=== PATIENT | male | born 1980 | race Caucasian/White ===

== ENCOUNTER → 2017-07-11 10:15 | Outpatient (REF) | payer OTHER, SELFPAY | LOC: LAB 10:15 | PROVIDERS: Visit Provider Surgery | DX: L02.419 Cutaneous abscess of limb, unspecified (principal) | CPT/HCPCS: 87070; 87077; 87186; 87205 ==

== ENCOUNTER 2017-07-11 14:30 | Outpatient (CLI) | payer OTHER, SELFPAY ==
--- NOTE | 2017-07-11 16:41 | PC.NURSE ---
1450 - PT HAD I&D OF RIGHT ANTERIOR THIGH ABSCESS IN DR ANNE'S OFFICE YESTERDAY. CAME IN TODAY FOR WET TO DRY DRESSING CHANGE TO RIGHT THIGH AND INSTRUCTIONS TO BE GIVEN TO ON WOUND CARE/DRESSING CHANGES AND CONTINUE AT HOME BID. OUTER DRESSING CONTAINS BLOODY DRAINAGE. REMOVED DRESSING AND WET PACKING WITH NS PRIOR TO REMOVAL. WOUND BED RED AND MOIST AND MEASURES 2CM X 1CM. AREA AROUND WOUND RED AND SLIGHTLY SWOLLEN. PACKED WOUND WITH NS SOAKED STRETCH BANDAGE, COVERED WITH 2 DRY 4X4'S FOLLOWED BY ABD PAD FOLDED IN HALF AND TAPED INTO PLACE. INSTRUCTED ON WOUND CARE/DRESSING CHANGE AND SHE WATCHED AND ASKED QUESTIONS PROCEDURE TAKING PLACE. SHE STATED SHE FELT COMFORTABLE DOING DRESSING CHANGES BID AT HOME. SUPPLIES GIVEN TO PERFORM DRESSING CHANGES. INSTRUCTED TO CALL DR ANNE IF DEVELOPS FEVER OF IF WOUND BECOMES FOUL SMELLING OR DRAINAGE BECOMES PUS-LIKE.
== END 2017-07-11 15:35 | disposition home or self-care (01) ==
LOC: INF 14:48
PROVIDERS: Family Provider Family Medicine; PCP Otolaryngology; Visit Provider Surgery
DX: L03.115 Cellulitis of right lower limb (principal); Z48.01 Encounter for change or removal of surgical wound dressing
CPT/HCPCS: G0463

== ENCOUNTER 2019-10-27 09:54 | Outpatient (RCR) | payer BC, SELFPAY ==
--- NOTE | 2019-10-27 10:39 | HMH.PTOPEV ---
PT Outpatient Evaluation Rehab PT Outpatient Evaluation Start: 10/27/19 10:01 Freq: Status: Active Protocol: Document 10/27/19 10:33 PHORRADHA (Rec: 10/27/19 10:39 PHORNE [id number]) Electronically Signed By Brigido Bustillo, PT 10/27/19 10:33 Outpatient Therapy Subjective History Subjective History Pt presents with c/o 2-3 wks of intermittent vertigo after an episode that lasted ~ 1-2 hrs. He reports having a hx of Vertigo beginning ~ 9 yrs ago when he had an episode of sudden onset vertigo with N/V that lasted ~ 12 hrs. He reports having several episodes that last for a few hours over the years since that time. He has been given vestibular exercises before that seem to help. He reports since this latest episode he cut back on his salt intake which has helped his feelings of vertigo. He also reports he uses allergy medication and nasal spray for sinus symptoms frequently. Chief Complaint Other Level of pain today (0-10) 0 Pain scale - at its worst (0-10) 0 Balance Eval Hx of Falls Hx Falls No Gait/Posture Asssessment General Gait Observation No Deviations/Normal Nystagmus Nystagmus Presence None Oculomotor Gaze Oculomotor Gaze Nml: Vergence Smooth Pursuit Saccades VOR Cancellation Cover/Uncover Cross Cover Outpatient Therapy Assessment Impairments Problems/Impairmments Impaired Balance Prognosis Rehab Potential Good Clinical Impression Consistent with Diagnosis Yes Consistent with likely meniere's disease. Outpatient Therapy Plan of Care Frequency Times per week 0 Duration Number of Weeks 0 Addendums This patient is a candidate for social No or vocational rehab? Patient/Guardian verbally acknowledges Yes understanding of treatment program and consents to further treatment? Patient/Guardian verbally acknowledges Yes understanding of diagnosis, prognosis and goals for treatment? G -code Required No Eval Complexity PT Charges
== END 2019-10-27 09:59 | disposition home or self-care (01) ==
LOC: PT 09:54
PROVIDERS: PCP Internal Medicine Adolescent Medicine; Visit Provider Family Medicine
DX: H81.399 Other peripheral vertigo, unspecified ear (principal)
CPT/HCPCS: 97163

== ENCOUNTER → 2021-03-13 08:29 | Outpatient (CLI) | payer BC, SELFPAY | PROVIDERS: Visit Provider Nurse Practitioner | DX: Z20.822 Contact with and (suspected) exposure to COVID-19 (principal); U07.1 COVID-19 | CPT/HCPCS: C9803; U0003; U0005 ==

== ENCOUNTER 2023-09-20 14:44 | Outpatient (CLI) | payer BC, SELFPAY ==
[2023-09-20 19:04] LABS: Alanine Aminotransferase 43 U/L (12-78); Albumin Level 4.6 g/dl (3.5-5.0); Albumin/Globulin Ratio 1.8 (1.1-1.8); Alkaline Phosphatase 65 U/L (38-126); Anion Gap 17.3 mEq/L (5-15); Aspartate Amino Transferase 41 U/L (17-59); Bilirubin,Total 0.7 mg/dl (0.2-1.3); Blood Urea Nitrogen 17 mg/dl (9-20); Calcium 9.8 mg/dl (8.4-10.2); Carbon Dioxide 25 mmol/L (22.0-30.0); Chloride 104 mmol/L (98-107); Chol/HDL Ratio 4.8 (1-3.5); Cholesterol 246 mg/dl (140-200); Estimated Glomerular Filt Rate 73 ml/min (>60); GFR (African American) 88 ML/MIN (>60); Globulin 2.5 g/dL (1.3-3.2); Glucose 81 mg/dl (74-100); HDL Cholesterol 51 mg/dl (40-60); Potassium 4.3 mmoL/L (3.5-5.1); Sodium 142 mmol/L (136-145); Total Protein,Serum 7.1 g/dl (6.3-8.2); Triglycerides 112 mg/dl (30-150); VLDL Cholesterol 22 mg/dL (0-40)
[2023-09-20 19:16] LABS: Direct LDL Cholesterol 159.89 mg/dL (100-129)
== END 2023-09-20 23:59 | disposition home or self-care (01) ==
LOC: LAB.DROPOF 09-23 14:44
PROVIDERS: PCP Family Medicine; Visit Provider Family Medicine
DX: D17.9 Benign lipomatous neoplasm, unspecified (principal)
CPT/HCPCS: 80053; 80061

== ENCOUNTER 2023-10-09 10:57 | Outpatient (CLI) | payer BC, SELFPAY ==
[2023-10-09 11:33] LABS: Basophils % 0.6 % (0.1-2.0); Eosinophils # 0.1 K/mm3 (0.0-0.4); Eosinophils % 1.8 % (0.1-12.0); Hemoglobin 15.3 g/dL (14.1-18.0); Lymphocytes # 2.1 K/mm3 (0.7-4.5); Lymphocytes % 32.5 % (10-50); Mean Corpuscular HGB Conc 33.2 g/dL (31.8-35.4); Mean Corpuscular Hemoglobin 30.3 pg (27.0-31.2); Mean Corpuscular Volume 91.2 fl (80-94); Mean Platelet Volume 10.3 fl (7.4-10.4); Monocytes # 0.3 K/mm3 (0.1-1.0); Monocytes % 4.6 % (1.7-9.3); Neutrophils # 3.8 K/mm3 (1.8-7.8); Neutrophils % 60.4 % (37.0-80.0); Platelet Count 200 K/mm3 (142-424); Red Blood Count 5.04 M/mm3 (4.60-6.20); Red Cell Distribution Width 14.2 % (11.5-17.5); White Blood Count 6.3 K/mm3 (4.8-10.8)
== END 2023-10-09 23:59 | disposition home or self-care (01) ==
LOC: LAB 10:58
PROVIDERS: PCP Family Medicine; Visit Provider Surgery
DX: D17.9 Benign lipomatous neoplasm, unspecified (principal)
CPT/HCPCS: 36415; 85025

== ENCOUNTER 2023-10-18 09:40 | Day surgery (SDC) | payer BC, SELFPAY ==
[2023-10-17 08:55] VITALS: BMI 34.4
[2023-10-18] VITALS (12 sets, daily range): BP systolic 132–152; BP diastolic 74–90; PULSE 64–78; RESP 16–18; TEMP 36.1–43; O2SAT 95–99; BMI 34.4
[2023-10-18] MEDS: LACTATED RINGERS 1000ML 1,000 ML 25 ML IV (10:11)
--- NOTE | 2023-10-18 10:54 | P.PNANES_ITS ---
[facility] Disclaimer: The information contained in this section may have been updated after the patient was seen, as this information can be updated by other users. Medical History Contusion of left ankle Surgical History H/O oral surgery Family History Father Cancer Hypertension Grandfather Stroke Mother Hypertension Grandmother Diabetes Social History Smoking Status: Never smoker alcohol intake: never counseling provided: none substance use type: denies use current occupational status: employed Travel in the last 8 weeks: None household members: spouse and children housing: house [facility] Anesthesia Checklist Patient Identification Patient Identification: Arm Band and Verbal (Name & ) Structural Data Admitted From: Home Planned Operative Procedure/s: Lipoma removal Consent for Planned Operative Procedure(s) Verified: Yes Verified Documents: Surgical Consent and History and Physical NPO Status Verified Time NPO: 00:00 Additional verifications Anesthesia Reactions: No Blood Transfusion Reaction: No Airway Assessment Mallampati Score:: Class III C-Spine Mobility Assessed: Yes TMJ Mobility Assessed: Yes Dentition: Good Dentition (Implants) Neurological Assessment Level of Consciousness: Awake Hx Seizures: No Numbness or tingling in extremities: No Anesthesia Plan Anesthesia Risk discussed: Yes Anesthesia Plan: Verified ASA Class: II Anesthesia Type: General
[2023-10-18] MEDS: CLINDAMYCIN PHOSPHATE/D5W 900 MG/50 ML PIGGYBACK IV (11:41)
[2023-10-18] MEDS: LIDOCAINE 1% 20ML MDV 20 ML (11:41)
--- NOTE | 2023-10-18 12:06 | EXP.OP.NOTE ---
Date of procedure: 10/18/23 Pre-op Diagnosis:: 3.5 cm left shoulder lipoma 1 cm right upper extremity lipoma Post-op Diagnosis:: Same Procedure performed:: Excision of 3.5 cm left shoulder lipoma Excision of 1 cm right upper extremity lipoma Surgeon:: Blas Jones MD PIGGYBACK CLERK:: Andres Glover Anesthesia: LMA Estimated blood loss (mL): 15 Operative findings:: Lobulated 3.5 cm complex left shoulder apex lipoma 1 cm right upper extremity lipoma Operative note:: After informed consent was obtained the patient was taken to the operating room and placed in the supine position. General anesthesia with laryngeal mask airway was achieved. His right arm and left shoulder apex region were prepped and draped in a sterile fashion. After infiltration with local anesthetic an incision was made overlying the 1 cm right upper extremity lipoma. The lesion was excised in toto with electrocautery. Electrocautery was also utilized to achieve hemostasis. Skin was reapproximated with 4-0 nylon in an interrupted mattress fashion to facilitate hemostasis and a pressure dressing was applied. Attention was then turned to the left shoulder apex lipoma. After infiltration with local anesthetic an incision was made overlying the palpable lesion. Electrocautery was utilized to transect through the deeper subcutaneous tissue and around the lipomatous lesion. The lesion which was somewhat lobulated and complex was excised in toto. Skin was reapproximated with interrupted 4-0 nylon in an interrupted mattress fashion. Dressings were applied and the patient was transferred to recovery in stable condition. Specimens were both passed off for pathologic evaluation. Condition: stable Disposition: PACU Specimens:: 3.5 cm left shoulder apex lipoma 1 cm right upper extremity lipoma Complications:: No immediate
--- NOTE | 2023-10-18 12:26 | P.PNANES_ITS ---
[facility] Anesthesia Record Part I Anesthesia Record I Intake, IV Amount: 600 Hydration: Adequate Estimated blood loss (mL): 5 Urine output (mL): 9 Blood Products used (#): none Blood Pressure: 144/77 SaO2: 97 Pulse Rate: 68 Airway Patency: Patent Respiratory Rate: 16 Temperature: 97 F Patient is:: Drowsy and Stable Stable to PACU at:: 12:15
--- NOTE | 2023-10-18 13:17 | EXP.ANES.II ---
[facility] Anesthesia Record Part II Anesthesia Record Part II Discharge Time: 12:45 Destination: Surgical Day Care (OP Surgery) PACU nurse assessment reviewed?: Yes Patient Condition:: Good Anesthesia Complications:: None Swallowing reflex intact?: Yes Airway Patency: Patent Cyanosis?: No Blood Pressure: 150/82 SaO2: 97 Respiratory Rate: 16 Pulse Rate: 67 Temperature: 97.9 F Mental Status: Alert & Oriented Pain level:: 0 Nausea and/or vomitting:: None Intake, IV Amount: 0 Hydration: Adequate
== END 2023-10-18 13:16 | disposition home or self-care (01) ==
PROVIDERS: PCP Family Medicine; Visit Provider Surgery
PROC: (CPT 11404; principal; 2023-10-18 11:15)
DX: D17.21 Benign lipomatous neoplasm of skin and subcutaneous tissue of right arm (principal); D17.22 Benign lipomatous neoplasm of skin and subcutaneous tissue of left arm
CPT/HCPCS: 11404; 11401; 96374; J1100; J2405; J3010; J7120

== ENCOUNTER 2024-07-29 08:25 | Outpatient (CLI) | payer BC, SELFPAY ==
[2024-07-29 08:59] LABS: Basophils % 0.5 % (0.1-2.0); Eosinophils # 0.2 K/mm3 (0.0-0.4); Eosinophils % 3.2 % (0.1-12.0); Hematocrit 46.8 % (42.0-52.0); Lymphocytes # 2.3 K/mm3 (0.7-4.5); Mean Corpuscular HGB Conc 34.2 g/dL (31.8-35.4); Mean Corpuscular Hemoglobin 29.6 pg (27.0-31.2); Mean Corpuscular Volume 86.5 fl (80-94); Mean Platelet Volume 12.4 fl (7.4-10.4); Monocytes # 0.4 K/mm3 (0.1-1.0); Monocytes % 6.6 % (1.7-9.3); Neutrophils # 3.5 K/mm3 (1.8-7.8); Neutrophils % 54.1 % (37.0-80.0); Platelet Count 210 K/mm3 (142-424); Red Blood Count 5.41 M/mm3 (4.60-6.20); Red Cell Distribution Width 13.1 % (11.5-17.5); White Blood Count 6.5 K/mm3 (4.8-10.8)
[2024-07-29 09:34] LABS: Alanine Aminotransferase 56 U/L (12-78); Albumin Level 4.7 g/dl (3.5-5.0); Albumin/Globulin Ratio 2.5 (1.1-1.8); Alkaline Phosphatase 59 U/L (38-126); Anion Gap 12.5 mEq/L (5-15); Aspartate Amino Transferase 38 U/L (17-59); Bilirubin,Total 0.6 mg/dl (0.2-1.3); Blood Urea Nitrogen 18 mg/dl (9-20); Calcium 9.8 mg/dl (8.4-10.2); Carbon Dioxide 27 mmol/L (22.0-30.0); Chloride 105 mmol/L (98-107); Chol/HDL Ratio 5.7 (1-3.5); Cholesterol 212 mg/dl (140-200); Estimated Glomerular Filt Rate 81 ml/min (>60); GFR (African American) 98 ML/MIN (>60); Globulin 1.9 g/dL (1.3-3.2); Glucose 104 mg/dl (74-100); HDL Cholesterol 37 mg/dl (40-60); Potassium 4.5 mmoL/L (3.5-5.1); Sodium 140 mmol/L (136-145); Total Protein,Serum 6.6 g/dl (6.3-8.2); Triglycerides 169 mg/dl (30-150); VLDL Cholesterol 34 mg/dL (0-40)
[2024-07-29 09:45] LABS: Direct LDL Cholesterol 131.35 mg/dL (100-129)
[2024-07-29 09:54] LABS: Free T4 (Free Thyroxine) 0.77 ng/dl (0.78-2.19)
[2024-07-29 10:06] LABS: Thyroid Stimulating Hormone 1.92 uIU/mL (0.465-4.68)
[2024-07-29 10:14] LABS: Hemoglobin A1C 5.8 % (4.0-6.0)
[2024-07-29 12:06] LABS: HIV Combo NEGATIVE (Negative)
[2024-07-29 12:14] LABS: Hepatitis C Ab Qual. W/ RFX NEGATIVE (Negative)
[2024-08-03 08:42] LABS: Testosterone, Total, LC/MS 334 ng/dL (.)
== END 2024-07-29 23:59 | disposition home or self-care (01) ==
LOC: LAB 08:26
PROVIDERS: PCP Internal Medicine; Visit Provider Internal Medicine
DX: R53.83 Other fatigue (principal); Z11.4 Encounter for screening for human immunodeficiency virus [HIV]; Z13.29 Encounter for screening for other suspected endocrine disorder; Z13.1 Encounter for screening for diabetes mellitus; Z13.220 Encounter for screening for lipoid disorders; Z11.59 Encounter for screening for other viral diseases
CPT/HCPCS: 36415; 80053; 80061; 83036; 84403; 84439; 84443; 85025; 86803; 87389